=== PATIENT | male | born 1970 | race African-American/Black ===

== ENCOUNTER 2021-05-17 15:59 | Emergency (ER) | payer BC ==
[2021-05-17] MEDS ORDERED: Ondansetron PF 4 MG/2 ML Vial ONE (19:15)
[2021-05-17] MEDS ORDERED: Morphine 4 MG/ML VIAL ONE (19:15)
[2021-05-17 20:20] LABS: Mean Corpuscular HGB CONC 33.3 g/dL (32.0-36.0); Mean Corpuscular Hemoglobin 31.1 pg (27.0-33.0); Mean Corpuscular Volume 93.3 fl (81.2-95.1); Mean Platelet Volume 8.6 fl (7.4-10.4); Platelet Count 300 10x3/uL (150-450); RBC Distribution Width 15.1 % (11.5-14.5); White Blood Cell (WBC) Count 6.6 10x3/uL (3.5-10.5)
[2021-05-17 20:21] LABS: Bilirubin Neg (Negative); Blood, Urine Negative (Negative); Clarity Slightly Cloudy (Clear); Glucose, Urine (Dipstick) Normal (Negative); Ketone, Urine Negative (Negative); Leukocyte Negative (Negative); Nitrite Negative (Negative); Protein, Urine (Dipstick) Negative (Neg-Trace)
[2021-05-17 20:21] LABS: MDiff Complete? YES; Manual Diff?? YES
[2021-05-17 20:29] LABS: ALT (SGPT) 17 U/L (8-55); AST (SGOT) 22 U/L (5-34); Albumin 4.4 g/dL (3.5-5.0); Alkaline Phosphatase 66 U/L (40-110); Anion Gap 12 mmol/L (10-20); BUN (Urea Nitrogen) 10 mg/dL (8.9-20.6); Bilirubin, Total 0.3 mg/dL (0.2-1.2); Calc. Creatinine Clearance 0 mL/min (70-130); Carbon Dioxide 28 mmol/L (22-29); Chloride 103 mmol/L (98-107); Globulin 3.3 g/dL (2.4-3.5); Glucose 81 mg/dL (70-105); Potassium 3.7 mmol/L (3.5-5.1); Protein, Total 7.7 g/dL (6.0-8.3); Sodium 139 mmol/L (136-145)
[2021-05-17 20:49] LABS: Eosinophils 3 % (0-10); Lymphocytes 42 % (21-51); Monocytes 8 % (0-10); Neutrophil 43 % (42-75); Reactive Lymphocytes 4 % (0-10)
[2021-05-17 20:50] LABS: Platelet Morphology Comment Appears Adequate
[2021-05-17 20:51] LABS: Anisocytosis SLIGHT = 6-15 cells (100X) (0-5/hpf)
== END 2021-05-17 21:19 | disposition home or self-care (01) ==
LOC: CSHERS 15:59
DX: R10.9 Unspecified abdominal pain (principal); F17.210 Nicotine dependence, cigarettes, uncomplicated
CPT/HCPCS: 74177; 76870; 80053; 81003; 85025; 87086; 93976; 96374; 96375; J2270; J2405

== ENCOUNTER 2021-05-22 17:52 | Emergency (ER) | payer BC | END 2021-05-22 20:35 | disposition home or self-care (01) | LOC: CSHERS 17:52 | DX: I86.1 Scrotal varices (principal); F17.210 Nicotine dependence, cigarettes, uncomplicated | CPT/HCPCS: 99283 ==

== ENCOUNTER 2021-09-19 08:08 | Emergency (ER) | payer BC | END 2021-09-19 09:35 | disposition home or self-care (01) | LOC: CSHERS 08:08 | DX: T65.91XA Toxic effect of unspecified substance, accidental (unintentional), initial encounter (principal); T25.621A Corrosion of second degree of right foot, initial encounter; T32.0 Corrosions involving less than 10% of body surface; F17.210 Nicotine dependence, cigarettes, uncomplicated | CPT/HCPCS: 99283 ==